=== PATIENT | male | born 1950 | race Caucasian/White ===

== ENCOUNTER 2017-05-26 13:54 | Outpatient (CLI) | payer OTHER ==
[2017-05-26] MEDS ORDERED: IOPAMIDOL-300 50 ML VIAL ONE (14:03)
[2017-05-26] MEDS ORDERED: IOPAMIDOL-300 100 ML VIAL ONE (14:03)
[2017-05-26] MEDS ORDERED: IOPAMIDOL-300 100 ML VIAL IVP ONE (14:13)
[2017-05-26] MEDS ORDERED: IOPAMIDOL-300 50 ML VIAL PO ONE (14:13)
--- NOTE | 2017-05-26 17:42 | CT Report ---
DATE OF SERVICE: 05/26/2017 EXAM: CT ABDOMEN AND PELVIS WITH CONTRAST 05/26/2017 CLINICAL INDICATION: Six months of unexplained weight loss. COMPARISON: 10/13/2011. TECHNIQUE: Axial CT images of the abdomen and pelvis were obtained with 100 mL Isovue 300 intravenou sly as well as oral contrast. FINDINGS ABDOMEN: The liver, spleen, pancreas and adrenal glands appear unremarkable. The kidneys demonstrat e multiple cortical cysts. No solid renal mass or hydronephrosis is appreciated. The gallbladder is not dilate d. No bowel dilatation, free gas, or free fluid is present. No abdominal adenopathy is appreciated. PELVIS: The pelvic organs appear unremarkable. No pelvic adenopathy or free fluid is appreciated. The osseous structures demonstrate degenerative changes and postoperative changes of right hip replac ement. IMPRESSION: NO EVIDENT ETIOLOGY FOR PATIENT'S WEIGHT LOSS. INCIDENTAL RENAL CYSTS. In accordance with CT protocol optimization, one or more of the following dose reduction techniques w ere utilized for this exam: automated exposure control, adjustment of mA and/or KV based on patient size, or use of iterative reconstructive technique. TD: 05/26/2017 17:17
--- NOTE | 2017-05-26 17:47 | CT Report ---
DATE OF SERVICE: 05/26/2017 EXAM: CT CHEST WITH CONTRAST CLINICAL INDICATION: Six months unexplained weight loss. TECHNIQUE: Axial CT images of the chest were obtained with 100 mL Isovue 300 intravenously. In accordance with CT protocol optimization, one or more of the following dose reduction techniques w ere utilized for this exam: automated exposure control, adjustment of mA and/or KV based on patient size, or use of iterative reconstructive technique. COMPARISON: No previous CT is available for comparison. FINDINGS: The heart and great vessels demonstrate mild atherosclerotic calcification. No hilar or m ediastinal lymphadenopathy is present. The lungs are clear. No suspicious pulmonary nodule or mass lesion is p resent. No effusion or pneumothorax is present. Osseous structures demonstrate degenerative changes. IMPRESSION: NO EVIDENCE OF PULMONARY NODULE OR MASS LESION. NO ADENOPATHY. TD: 05/26/2017 17:13
== END 2017-05-26 13:55 | disposition home or self-care (01) ==
LOC: DI 13:54
PROVIDERS: ATTEND Emergency Medicine Emergency Medical Services
DX: R63.4 Abnormal weight loss (principal)
CPT/HCPCS: 71260; 74177; Q9967

== ENCOUNTER 2017-06-29 01:27 | Outpatient (CLI) | payer OTHER | END 2017-06-29 01:28 | disposition EMS.NT | LOC: EMS 01:27 | PROVIDERS: ATTEND Surgery | DX: Z03.89 Encounter for observation for other suspected diseases and conditions ruled out (principal) ==

== ENCOUNTER 2018-03-12 15:26 | Outpatient (CLI) | payer OTHER ==
--- NOTE | 2018-03-13 16:17 | Ultrasound Report ---
Reason: CONCERN WITH INGUINAL,UMBILICAL HERNIA Procedure Date: 03/12/2018 Accession Number: [id number] / [id number] Procedure: US - Pelvic Limited or F/U CPT Code: FULL RESULT: EXAM: LIMITED ABDOMINAL WALL ULTRASOUND EXAM DATE: 03/12/2018 04:58 PM. CLINICAL HISTORY: Concern with inguinal umbilical hernia. COMPARISON: None. TECHNIQUE: Real-time scanning was performed of the supraumbilical region and left inguinal region with static images and dynamic cine images obtained. FINDINGS: Static and dynamic armas scale images of the left inguinal canal region as well as the periumbilical region were obtained. In the left inguinal region medial to the vessels as they cross over the inguinal ring is an echogenic mass suggestive of prior hernia repair. No abdominal content is seen protruding through this with Valsalva maneuver. Superior to the umbilicus is an abdominal wall defect which measures up to 0.8 cm and demonstrates echogenic material protruding which moves with Valsalva maneuver. IMPRESSION: Supraumbilical hernia, likely fat-containing. No herniation of bowel or mesenteric fat content is identified in the left inguinal region. RADIA
== END 2018-03-12 15:27 | disposition home or self-care (01) ==
LOC: DI 15:26
PROVIDERS: ATTEND Emergency Medicine Emergency Medical Services
DX: K43.9 Ventral hernia without obstruction or gangrene (principal)
CPT/HCPCS: 76857

== ENCOUNTER 2019-08-23 01:41 | Emergency (ER) | payer OTHER ==
[2019-08-23 01:50] VITALS: BP 129/80
--- NOTE | 2019-08-23 01:59 | ED Physician Documentation ---
History of Present Illness - Stated complaint Stated Complaint: NECK VEIN PX - Chief complaint Chief Complaint: General - History obtained from History obtained from: Patient ( the patient is a very pleasant 69 y/o male who presents with a cc of paresthesias and burning to his right forearm that has resolved and then his right neck. the patient is very concerned that he could have possibly having signs of a stroke, his symptoms started 2 days ago. he receives his medical care from the co at [facility], he has been unable to see a physician secondary to closure to covid 19. he denies any hx of mi, stroke or dvt/pe. he denies cp/sob/fevers/alejandra/neck pain/ sore throat/weakness/facial droop or any other concerns. reports that his symptoms have resolved completely, denies any trauma. reports he had shingles previously and this feels similar. denies any rashes, fevers or neck pain.) Review of Systems Constitutional: reports: Reviewed and negative Eyes: reports: Reviewed and negative Ears: reports: Reviewed and negative Nose: reports: Reviewed and negative Throat: reports: Reviewed and negative Cardiac: reports: Reviewed and negative Respiratory: reports: Reviewed and negative GI: reports: Reviewed and negative : reports: Reviewed and negative Skin: reports: Other (paresthesias) Musculoskeletal: reports: Reviewed and negative Neurologic: reports: Reviewed and negative Psychiatric: reports: Reviewed and negative Endocrine: reports: Reviewed and negative Immunocompromised: reports: Reviewed and negative PD PAST MEDICAL HISTORY - Past Medical History Cardiovascular: High cholesterol : Benign prostate hypertrophy, Retention Psych: ADD/ADHD, Post traumatic stress disorder - Past Surgical History Past Surgical History: Yes Ortho: Hip replacement - Present Medications Home Medications: Ambulatory Orders Medication Instructions Recorded Confirmed Bupropion HCl [Wellbutrin] 100 mg PO BID 09/26/14 01/13/16 Alfuzosin HCl [Alfuzosin HCl ER] 10 mg PO DAILY 01/21/15 01/13/16 Aspirin Chewable [St Isacc 81 mg PO DAILY 01/21/15 01/13/16 Aspirin] Atorvastatin [Lipitor] 20 mg PO DAILY 01/21/15 01/13/16 HYDROcod/ACETAM 5/325 [[place] 5/325] 1 - 2 ea PO Q6H PRN #10 tablet 01/13/16 lamoTRIgine [Lamictal] 200 mg PO DAILY 01/13/16 01/13/16 - Allergies Allergies/Adverse Reactions: Allergies Allergy/AdvReac Type Severity Reaction Status Date / Time risperidone [From Risperdal] Allergy Unknown Verified 08/23/19 01:50 contrast Dye Allergy Unknown Uncoded 08/23/19 01:50 - Social History Does the pt smoke?: No Smoking Status: Never smoker Does the pt drink ETOH?: No Does the pt have substance abuse?: No - Immunizations Immunizations are current?: Yes - POLST Patient has POLST: No PD ED PE NORMAL - Vitals Vital signs reviewed: Yes - General General: Alert and oriented X 3, No acute distress, Well developed/nourished, Other - HEENT HEENT: Atraumatic, PERRL, EOMI, Ears normal, Moist mucous membranes, Pharynx benign, Dentition benign, Other - Neck Neck: Supple, no meningeal sign, No bony TTP, No adenopathy, Thyroid normal, No JVD, No bruit, Other (The area of paresthesias to the right side the neck, there is it is nontender to palpation, there is no JVD there is no fluctuance, no induration no crepitus there is no carotid bruits there is no tracheal deviation normal voice tolerating secretions there is no cervical midline tenderness to palpation there is no step-offs or deformities of the cervical spine he has full range of motion on passive and active range of motion in flexion, extension, sidebending and rotation.) - Cardiac Cardiac: RRR, No murmur, Strong equal pulses - Respiratory Respiratory: No respiratory distress, Clear bilaterally - Abdomen Abdomen: Normal bowel sounds, Soft, Non tender, Non distended, No organomegaly - Back Back: No CVA TTP, No spinal TTP - Derm Derm: Normal color, Warm and dry, No rash - Extremities Extremities: No deformity, No tenderness to palpate, Normal ROM s pain, No edema, No calf tenderness / cord - Neuro Neuro: Alert and oriented X 3, recreation activities coordinator 2-12 intact, No motor deficit, No sensory deficit, Normal speech, Other (no facial droop, Cranial nerves II through XII grossly intact, no pronator drift no unilateral weakness, normal finger-nose, normal heel ahmadi, normal rapid alternating movements strength is 5 out of 5 bilateral upper and lower extremities, Sensations intact to light touch bilateral upper and lower extremity reflexes are 2+ and symmetric.Normal gait can walk on his heels and his toes normal standing balance test.) - Psych Psych: Normal mood, Normal affect Results - Vitals Vitals: Vital Signs - 24 hr 08/23/19 01:45 Temperature 36.5 C Heart Rate 72 Respiratory 14 Rate Blood Pressure 129/80 O2 Saturation 98 Oxygen O2 Source Room air PD MEDICAL DECISION MAKING - ED course Complexity details: considered differential (Patient presents with vague symptoms of paresthesias to the right forearm that is resolved and paresthesias to the right neck that is resolved. His NIH score is 0, he has no chest pain no history of [place] or stroke, he has no red flags to suggestAny deep neck space infection such as Lemierre's disease.No history of pulmonary embolism or DVT denies any lower extremity swelling no chest pain no shortness of breath no recent long travels no history of hypercoagulability no recent period of stasis or traumaAnd he denies any exogenous estrogen use.He does report he has a history of PTSD and bipolar disorderHe takes Lamictal as well as Wellbutrin.[facility] Departure - Departure Disposition: 01 Home, Self Care Clinical Impression: Well adult health check, Paresthesias Condition: Stable Instructions: ED Paraesthesias Follow-Up: your, doctor [Other] - 08/23/19 Comments: [facility]
== END 2019-08-23 02:19 | disposition home or self-care (01) ==
LOC: ED 01:41
DX: R20.2 Paresthesia of skin (principal)
CPT/HCPCS: 99281

== ENCOUNTER 2019-08-26 16:43 | Outpatient (CLI) | payer OTHER | END 2019-08-26 16:44 | disposition home or self-care (01) | LOC: COV 16:43 | PROVIDERS: ATTEND Family Medicine | DX: R05 Cough (principal); R50.9 Fever, unspecified | CPT/HCPCS: 81599 ==

== ENCOUNTER 2020-06-26 14:53 | Emergency (ER) | payer OTHER ==
--- NOTE | 2020-06-26 16:40 | ED Physician Documentation ---
PD HPI LOWER EXT INJURY - Stated complaint Stated Complaint: LEFT HIP PX - Chief complaint Chief Complaint: Ext Problem - History obtained from History obtained from: Patient - History of Present Illness PD HPI LOW EXT INJURY LOCATION: Left, Hip Type of injury: Other (He had radiation treatment localized for his prostate cancer. He had to hold still with his hip bent and his hip is hurting more after that. Has had hip pain for awhile, worse in AMs, but also with more activity (prolonged walking, etc).). No: Fall, Twist Timing - onset: Today Timing - details: Gradual onset Improved by: No: Rest Worsened by: Moving, Palpating (lateral hip) Associated symptoms: No: Weakness, Numbness, Swelling Similar symptoms before: No diagnosis (has had hip pains for awhile, with activity and feels stiff in mornings. Has had prior right hip replacement due to arthritis. This feels similar.) Review of Systems Constitutional: denies: Fever, Chills Nose: denies: Rhinorrhea / runny nose, Congestion Throat: denies: Sore throat Respiratory: denies: Cough Skin: denies: Rash, Lesions Neurologic: denies: Focal weakness, Numbness PD PAST MEDICAL HISTORY - Past Medical History Cardiovascular: High cholesterol : Benign prostate hypertrophy, Retention Psych: ADD/ADHD, Post traumatic stress disorder - Past Surgical History Past Surgical History: Yes Ortho: Hip replacement - Present Medications Home Medications: Ambulatory Orders Medication Instructions Recorded Confirmed Bupropion HCl [Wellbutrin] 100 mg PO BID 09/26/14 01/13/16 Alfuzosin HCl [Alfuzosin HCl ER] 10 mg PO DAILY 01/21/15 01/13/16 Aspirin Chewable [St Isacc 81 mg PO DAILY 01/21/15 01/13/16 Aspirin] Atorvastatin [Lipitor] 20 mg PO DAILY 01/21/15 01/13/16 HYDROcod/ACETAM 5/325 [[place] 5/325] 1 - 2 ea PO Q6H PRN #10 tablet 01/13/16 lamoTRIgine [Lamictal] 200 mg PO DAILY 01/13/16 01/13/16 HYDROcod/ACETAM 5/325 [[place] 5/325] 1 ea PO Q6H PRN #20 tablet 06/26/20 dexAMETHasone [Decadron] 4 mg PO DAILY #5 tablet 06/26/20 - Allergies Allergies/Adverse Reactions: Allergies Allergy/AdvReac Type Severity Reaction Status Date / Time risperidone [From Risperdal] Allergy Unknown Verified 06/26/20 15:09 contrast Dye Allergy Unknown Uncoded 06/26/20 15:09 - Social History Does the pt smoke?: No Smoking Status: Never smoker Does the pt drink ETOH?: No Does the pt have substance abuse?: No - Immunizations Immunizations are current?: Yes - POLST Patient has POLST: No PD ED PE NORMAL - Vitals Vital signs reviewed: Yes - General General: Alert and oriented X 3, Well developed/nourished, Other (appears uncomfortable and is trying to find comfortable position for his hip. Not comfortable sitting in exam chair, so converted it to lying and feels better. ) - Abdomen Abdomen: Soft, Non tender - Back Back: No spinal TTP - Derm Derm: Normal color, Warm and dry - Extremities Extremities: Other (He has minimal pain with passive range of motion of the left hip. He is tender along the lateral aspect at the greater trochanter and downward inferiorly some along the muscle. No redness, rash nor sores noted at the area. ) - Neuro Neuro: Alert and oriented X 3, No motor deficit, No sensory deficit, Normal speech Results - Vitals Vitals: Vital Signs - 24 hr 06/26/20 06/26/20 15:09 17:48 Temperature 36.6 C 36.6 C Heart Rate 91 84 Respiratory 18 20 Rate Blood Pressure 109/83 H 127/87 H O2 Saturation 97 99 Oxygen O2 Source Room air - Rads (name of study) left hip Radiology: Prelim report reviewed (arthritic changes, no fractures nor lytic lesions. ), See rad report Procedures - General procedure General procedure: I did trochanteric bursal injection with Kenalog and bupivacaine at the area of point tenderness. No complications with this. The skin was cleansed prior to injection. PD MEDICAL DECISION MAKING - ED course Complexity details: reviewed results, considered differential (locally tender at greater trochanter and pain mainly lateral and with leg movement. Bursitis/tendonitis mostly, though might have some hip arthritis as well. ), d/w patient Departure - Departure Disposition: 01 Home, Self Care Clinical Impression: Trochanteric bursitis Qualifiers: Laterality: left Qualified Code(s): M70.62 - Trochanteric bursitis, left hip Condition: Stable Record reviewed to determine appropriate education?: Yes Instructions: ED Bursitis Follow-Up: CHRIS CHONG ARNP [Primary Care Provider] - Prescriptions: dexAMETHasone [Decadron] 4 mg PO DAILY #5 tablet HYDROcod/ACETAM 5/325 [[place] 5/325] 1 ea PO Q6H PRN #20 tablet PRN Reason: Pain Comments: Your x-ray shows some arthritis along the outer part of the hip and the bursa area where you are tender. I would treat this with anti-inflammatory of Decadron orally daily for the next 5 days. To that add Tylenol or hydrocodone as needed for pain. Gentle range of motion and activity for the area and some stretching of the hip muscles. Follow-up with your primary care if not improved well over the next several days and resolved by a week. Discharge Date/Time: 06/26/20 18:03
--- NOTE | 2020-06-26 17:00 | XRAY Report ---
PROCEDURE: Hip w/Pelvis 2-3V LT INDICATIONS: L hip pain prostate cancer TECHNIQUE: AP pelvis with lateral view(s) of the left hip(s). COMPARISON: None. FINDINGS: Bones: Patient is status post prior right total hip arthroplasty with anatomic right hip alignment. N o fractures or dislocations. Left hip joint osteoarthritic changes are seen. No evidence of avascula r necrosis of femoral head. Pelvic ring appears intact. No suspicious bony lesions. Soft tissues: The visualized bowel gas pattern is normal. No suspicious soft tissue calcifications. IMPRESSION: 1. No gross acute left hip fracture or dislocation. Moderate left hip joint osteoarthritis. No eviden ce of avascular necrosis. 2. Prior right total hip arthroplasty. Reviewed by: Mervin Carmichael MD on 06/26/2020 4:59 PM PST Approved by: Mervin Carmichael MD on 06/26/2020 4:59 PM PST Station ID: [id number]
[2020-06-26] MEDS ORDERED: TRIAMCINOLONE 40 MG/ML VIAL IM STA (17:05)
[2020-06-26] MEDS ORDERED: ACETAMINOPHEN 325 MG TABLET PO STA (17:06)
[2020-06-26 17:49] VITALS: BP 127/87
== END 2020-06-26 18:03 | disposition home or self-care (01) ==
LOC: ED 14:53
DX: M70.62 Trochanteric bursitis, left hip (principal); X50.1XXA Overexertion from prolonged static or awkward postures, initial encounter; D40.0 Neoplasm of uncertain behavior of prostate
CPT/HCPCS: 20552; 73502; 99283; A9270

== ENCOUNTER 2020-07-28 13:06 | Emergency (ER) | payer OTHER ==
[2020-07-28 13:17] VITALS: BP 122/81
--- NOTE | 2020-07-28 13:38 | ED Physician Documentation ---
PD HPI LOWER EXT INJURY - Stated complaint Stated Complaint: L HIP PX - Chief complaint Chief Complaint: Ext Problem - History obtained from History obtained from: Patient - History of Present Illness PD HPI LOW EXT INJURY LOCATION: Left, Hip Type of injury: Other (has had ongoing pain of left hip with arthritis. Seen by PMD at [facility] and is getting referral for MRI but will be few weeks. Having worse pain with walking. Here for eval and asks about MRI.). No: Fall, Twist Timing - onset: How many months ago Timing - details: Gradual onset, Still present (worse the past several days), Waxing and waning Worsened by: Moving, Other (weight bearing) Associated symptoms: No: Weakness, Numbness, Swelling Similar symptoms before: Diagnosis (arthritis of hip. Has had right hip replacement in the past. Getting eval for MRI and ortho referral for left hip.) Recently seen: Clinic, Emergency Dept (last ER, had element of lateral bursitis as well, with injection laterally. Rx for pain meds.) Review of Systems Constitutional: denies: Fever, Chills Nose: denies: Rhinorrhea / runny nose, Congestion Throat: denies: Sore throat Respiratory: denies: Cough Skin: denies: Rash, Lesions Neurologic: denies: Focal weakness, Numbness PD PAST MEDICAL HISTORY - Past Medical History Cardiovascular: High cholesterol : Benign prostate hypertrophy, Retention Psych: ADD/ADHD, Post traumatic stress disorder - Past Surgical History Past Surgical History: Yes Ortho: Hip replacement - Present Medications Home Medications: Ambulatory Orders Medication Instructions Recorded Confirmed Bupropion HCl [Wellbutrin] 100 mg PO BID 09/26/14 01/13/16 Alfuzosin HCl [Alfuzosin HCl ER] 10 mg PO DAILY 01/21/15 01/13/16 Aspirin Chewable [St Isacc 81 mg PO DAILY 01/21/15 01/13/16 Aspirin] Atorvastatin [Lipitor] 20 mg PO DAILY 01/21/15 01/13/16 HYDROcod/ACETAM 5/325 [[place] 5/325] 1 - 2 ea PO Q6H PRN #10 tablet 01/13/16 lamoTRIgine [Lamictal] 200 mg PO DAILY 01/13/16 01/13/16 HYDROcod/ACETAM 5/325 [[place] 5/325] 1 ea PO Q6H PRN #20 tablet 06/26/20 dexAMETHasone [Decadron] 4 mg PO DAILY #5 tablet 06/26/20 Meloxicam [Mobic] 7.5 mg PO BID PRN #30 tab 07/28/20 oxyCODONE [Roxicodone] 5 mg PO Q8H PRN #20 tab 07/28/20 - Allergies Allergies/Adverse Reactions: Allergies Allergy/AdvReac Type Severity Reaction Status Date / Time risperidone [From Risperdal] Allergy Unknown Verified 07/28/20 13:13 contrast Dye Allergy Unknown Uncoded 06/26/20 15:09 - Social History Does the pt smoke?: No Smoking Status: Never smoker Does the pt drink ETOH?: No Does the pt have substance abuse?: No - Immunizations Immunizations are current?: Yes - POLST Patient has POLST: No PD ED PE NORMAL - Vitals Vital signs reviewed: Yes - General General: Alert and oriented X 3, Well developed/nourished - Abdomen Abdomen: Soft, Non tender - Back Back: No spinal TTP - Derm Derm: Normal color, Warm and dry - Extremities Extremities: Other (left hip without tenderness at lateral bursa. Has guarded ROM of the hip. No noted effusion/redness/ warmth to the joint. ) - Neuro Neuro: No motor deficit, No sensory deficit Results - Vitals Vitals: Vital Signs - 24 hr 07/28/20 13:13 Temperature 36.6 C Heart Rate 89 Respiratory 18 Rate Blood Pressure 122/81 H O2 Saturation 99 Oxygen O2 Source Room air PD MEDICAL DECISION MAKING - ED course Complexity details: considered differential (arthritis of the hip. ongoing pain. Can give meds for it short term with f/u PMD. Also to see Ortho. ), d/w patient Departure - Departure Disposition: Home, Self Care Clinical Impression: Hip pain, Hip arthritis Condition: Stable Record reviewed to determine appropriate education?: Yes Instructions: ED Degenerative Joint Disease Follow-Up: [facility] [Provider Group] Terence Herring MD [Provider Admit Priv/Credential] - Prescriptions: Meloxicam [Mobic] 7.5 mg PO BID PRN #30 tab PRN Reason: Pain oxyCODONE [Roxicodone] 5 mg PO Q8H PRN #20 tab PRN Reason: Pain Comments: I would suggest some regular anti-inflammatories taken with food. We could try a different 1 and see if it works a little bit better, Mobic 7.5 mg twice daily. To that add Tylenol 500 mg 4 times a day regularly for pain. To that add oxycodone 3 times a day if needed for worse pain. Call your primary care at the [facility] and see if they can get you a referral for orthopedics parallel with getting set up for the MRI. Alternatively you may be able to follow-up with orthopedics locally for the short-term anyway to see if there is other therapeutic treatments such as joint injection or such. I would defer that to the judgment of the specialist. Use the crutches as needed for partial weightbearing off of the hip to reduce pain. Discharge Date/Time: 07/28/20 14:23
[2020-07-28] MEDS ORDERED: oxyCODONE 5 MG TABLET PO STA (14:06)
[2020-07-28] MEDS ORDERED: NAPROXEN 250 MG TABLET PO STA (14:06)
== END 2020-07-28 14:23 | disposition home or self-care (01) ==
LOC: ED 13:06
DX: M25.552 Pain in left hip (principal); M16.10 Unilateral primary osteoarthritis, unspecified hip
CPT/HCPCS: 99283; A9270

== ENCOUNTER 2020-08-05 13:54 | Emergency (ER) | payer OTHER ==
[2020-08-05 14:03] VITALS: BP 128/78
[2020-08-05] MEDS ORDERED: HYDROmorphone 1 MG/ML CARPUJECT IM STA (14:24)
--- NOTE | 2020-08-05 14:24 | ED Physician Documentation ---
History of Present Illness - Stated complaint Stated Complaint: RT HIP PX - Chief complaint Chief Complaint: Ext Problem - Additonal information Additional information: 70-year-old male comes to the emergency department for evaluation of chronic right hip pain that is gotten progressively worse over the last 6 months to a year. He did have a hip prosthesis placed in 1999. He denies any falls or trauma but states that bearing weight on the hip is getting increasingly hard. He was seen just a few weeks ago for left hip pain found to have osteoarthritis of that hip. He is [facility]. He is taking meloxicam and oxycodone with minimal relief of pain. Review of Systems Constitutional: reports: Reviewed and negative Eyes: reports: Reviewed and negative Ears: reports: Reviewed and negative Cardiac: reports: Reviewed and negative Respiratory: reports: Reviewed and negative GI: reports: Reviewed and negative : reports: Reviewed and negative Skin: reports: Reviewed and negative Musculoskeletal: reports: Joint pain (right hip) Neurologic: reports: Reviewed and negative Endocrine: reports: Reviewed and negative PD PAST MEDICAL HISTORY - Past Medical History Cardiovascular: High cholesterol : Benign prostate hypertrophy, Retention Psych: ADD/ADHD, Post traumatic stress disorder - Past Surgical History Past Surgical History: Yes Ortho: Hip replacement - Present Medications Home Medications: Ambulatory Orders Medication Instructions Recorded Confirmed Bupropion HCl [Wellbutrin] 100 mg PO BID 09/26/14 01/13/16 Alfuzosin HCl [Alfuzosin HCl ER] 10 mg PO DAILY 01/21/15 01/13/16 Aspirin Chewable [St Isacc 81 mg PO DAILY 01/21/15 01/13/16 Aspirin] Atorvastatin [Lipitor] 20 mg PO DAILY 01/21/15 01/13/16 HYDROcod/ACETAM 5/325 [[place] 5/325] 1 - 2 ea PO Q6H PRN #10 tablet 01/13/16 lamoTRIgine [Lamictal] 200 mg PO DAILY 01/13/16 01/13/16 HYDROcod/ACETAM 5/325 [[place] 5/325] 1 ea PO Q6H PRN #20 tablet 06/26/20 dexAMETHasone [Decadron] 4 mg PO DAILY #5 tablet 06/26/20 Meloxicam [Mobic] 7.5 mg PO BID PRN #30 tab 07/28/20 oxyCODONE [Roxicodone] 5 mg PO Q8H PRN #20 tab 07/28/20 - Allergies Allergies/Adverse Reactions: Allergies Allergy/AdvReac Type Severity Reaction Status Date / Time risperidone [From Risperdal] Allergy Unknown Verified 08/05/20 14:00 contrast Dye Allergy Unknown Uncoded 06/26/20 15:09 - Social History Does the pt smoke?: No Smoking Status: Never smoker Does the pt drink ETOH?: No Does the pt have substance abuse?: No - Immunizations Immunizations are current?: Yes - POLST Patient has POLST: No PD ED PE EXPANDED - General General: Alert, No acute distress - Cardiac Cardiac: Regular Rate, Regular Rhythm, Radial strong equal, Pedal strong equal, Cap refill < 2 sec - Respiratory Respiratory: Clear to ausultation amrita. No: Distress, Labored - Extremities Extremities: Right hip (tenderness lateral femoral head. no clicks. Reduced ROm external rotation. no swellign erythema. Bears full weight) Results - Vitals Vitals: Vital Signs - 24 hr 08/05/20 14:00 Temperature 36.6 C Heart Rate 70 Respiratory 18 Rate Blood Pressure 128/78 O2 Saturation 99 Oxygen O2 Source Room air - Rads (name of study) Right hip Radiology: Final report received (Status post right total hip arthroplasty without evidence for hardware complication. Right hip and pelvis without acute fracture or dislocation. Interval progression of moderate severe left hip degenerative change. Lower lumbar spondylosis.) PD MEDICAL DECISION MAKING - ED course Complexity details: reviewed results, re-evaluated patient, considered differential, d/w patient ED course: 70-year-old male presents emergency department with acute on chronic right hip pain. 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 Seen recently for left hip pain and imaging shows pretty severe osteoarthritis. I suspected that the increasing right hip pain may be a compensation for the left hip. Patient would like an MRI however I discussed that is not indicated not emergently here in the emergency department. My suspicion for occult fracture is extremely low in this gentleman is able to walk and bear weight fully. Patient advised to follow-up with his PCP to obtain the outpatient MRI. I will also give him the number of our local orthopedics if he is able to follow-up with them through [facility]. I declined opiate prescription today. I did offer repeat prescription the meloxicam which he declined. Emergent return precautions discussed Departure - Departure Disposition: 01 Home, Self Care Clinical Impression: Chronic right hip pain Condition: Stable Record reviewed to determine appropriate education?: Yes Instructions: Hip Osteoarthritis Follow-Up: [facility] [Provider Group] Comments: Sergio the x-ray of your hip does not show any concerns with the hardware. I suspect that the worsening right hip pain is likely compensation for the increasing arthritis in your left hip. It may be beneficial for you to use your crutches at home to help offload the left hip. Please continue to take the meloxicam at home for pain. Please call Dr. Roberts to discuss this ED visit. Your primary care provider can write the referral for the hip MRI and you can then get it scheduled through [facility] if you would like. I have also provided you the number of our orthopedics department. You may call them to see if you can be seen in follow- up though that may be dictated by the [place] insurance
--- NOTE | 2020-08-05 15:02 | XRAY Report ---
PROCEDURE: Hip w/Pelvis 2-3V RT INDICATIONS: his pain; hx of prosthesis TECHNIQUE: AP pelvis with lateral view(s) of the right hip(s). COMPARISON: 07/21/2015 FINDINGS: Bones: No acute fractures or dislocations. Status post right total hip arthroplasty in stable alignm ent. No evidence of hardware failure or loosening. Progression of moderate-severe left hip osteoarthr osis. Lower lumbar spondylosis. Pelvic ring appears intact. No suspicious bony lesions. Soft tissues: The visualized bowel gas pattern is normal. No suspicious soft tissue calcifications. IMPRESSION: 1. Status post right total hip arthroplasty without evidence for hardware complication. 2. Right hip and pelvis without acute fracture or dislocation. 3. Interval progression of moderate-severe left hip degenerative change. 4. Lower lumbar spondylosis. Reviewed by: Dameon Walsh MD on 08/05/2020 3:01 PM PST Approved by: Dameon Walsh MD on 08/05/2020 3:01 PM PST Station ID: [id number]
== END 2020-08-05 16:04 | disposition home or self-care (01) ==
LOC: ED 13:54
DX: M25.551 Pain in right hip (principal); G89.29 Other chronic pain; M16.12 Unilateral primary osteoarthritis, left hip
CPT/HCPCS: 99283

== ENCOUNTER 2020-12-17 20:34 | Outpatient (CLI) | payer MEDICARE, OTHER | END 2020-12-17 20:35 | disposition EMS.NT | LOC: EMS 20:34 | DX: Z04.1 Encounter for examination and observation following transport accident (principal) ==

== ENCOUNTER 2020-12-17 21:26 | Emergency (ER) | payer OTHER, MEDICARE ==
[2020-12-17 21:45] VITALS: BP 150/96
== END 2020-12-17 22:20 | disposition left against medical advice (07) ==
LOC: ED 21:26
DX: Z53.21 Procedure and treatment not carried out due to patient leaving prior to being seen by health care provider (principal)

== ENCOUNTER 2020-12-18 21:11 | Emergency (ER) | payer OTHER, MEDICARE ==
[2020-12-19] MEDS ORDERED: HYDROcod/ACET 5/325 Prepack 4 PO STA (00:21)
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
[2020-12-19 00:34] VITALS: BP 115/75
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
== END 2020-12-19 00:35 | disposition home or self-care (01) ==
LOC: ED 21:11
DX: S70.02XA Contusion of left hip, initial encounter (principal); S89.91XA Unspecified injury of right lower leg, initial encounter; V53.5XXA Driver of pick-up truck or van injured in collision with car, pick-up truck or van in traffic accident, initial encounter; Y92.414 Local residential or business street as the place of occurrence of the external cause
CPT/HCPCS: 99283; 99284

== ENCOUNTER 2021-05-17 23:35 | Emergency (ER) | payer MEDICARE, OTHER ==
[2021-05-17 23:44] VITALS: BP 115/74
--- NOTE | 2021-05-17 23:47 | ED Physician Documentation ---
History of Present Illness - Stated complaint Stated Complaint: R SHOULDER PX - Chief complaint Chief Complaint: Ext Problem PD PAST MEDICAL HISTORY - Past Medical History Cardiovascular: High cholesterol Respiratory: None Neuro: None Endocrine/Autoimmune: None GI: None : Benign prostate hypertrophy, Retention HEENT: None Psych: ADD/ADHD, Post traumatic stress disorder Musculoskeletal: None Derm: None - Past Surgical History Past Surgical History: Yes Ortho: Hip replacement - Present Medications Home Medications: Ambulatory Orders Medication Instructions Recorded Confirmed Bupropion HCl [Wellbutrin] 100 mg PO BID 09/26/14 12/18/20 Aspirin Chewable [St Isacc 81 mg PO DAILY 01/21/15 12/18/20 Aspirin] Atorvastatin [Lipitor] 20 mg PO DAILY 01/21/15 12/18/20 lamoTRIgine [Lamictal] 200 mg PO DAILY 01/13/16 12/18/20 HYDROcod/ACETAM 5/325 [[place] 5/325] 1 - 2 tablet PO Q6H PRN #14 tablet 12/19/20 - Allergies Allergies/Adverse Reactions: Allergies Allergy/AdvReac Type Severity Reaction Status Date / Time risperidone [From Risperdal] Allergy Unknown Verified 05/17/21 23:44 contrast Dye Allergy Unknown Uncoded 05/17/21 23:44 - Social History Does the pt smoke?: No Smoking Status: Never smoker Does the pt drink ETOH?: No Does the pt have substance abuse?: No - Immunizations Immunizations are current?: Yes - POLST Patient has POLST: No Results - Vitals Vitals: Vital Signs - 24 hr 05/17/21 23:40 Temperature 36.5 C Heart Rate 74 Respiratory 18 Rate Blood Pressure 115/74 O2 Saturation 98 Oxygen O2 Source Room air
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
--- NOTE | 2021-05-18 00:19 | XRAY Report ---
PROCEDURE: Shoulder 3 View RT INDICATIONS: fall, right shoulder pain with limited ROM TECHNIQUE: 3 views of the shoulder were acquired. COMPARISON: None. FINDINGS: Bones: No fractures or dislocations. 2.9 cm lucent focus noted in the humeral head may represent a b one cyst or neoplastic process. Visualized ribs appear intact. Mild acromioclavicular joint and gleno humeral joint osteoarthritis. Soft tissues: Calcification noted adjacent to the lateral margin of the humeral head compatible with rotator cuff calcific tendinitis.. IMPRESSION: 1. Acromioclavicular joint and glenohumeral joint osteoarthritis. 2. Rotator cuff calcific tendinitis. 3. 2.9 cm lucency in the humeral head. Recommend MRI of the shoulder to differentiate bone cyst from neoplastic process. Reviewed by: Meghan Hill MD, PhD on 05/18/2021 12:18 AM PST Approved by: Meghan Hill MD, PhD on 05/18/2021 12:18 AM PST Station ID: [id number]
[2021-05-18] MEDS ORDERED: oxyCODONE/ACET 5/325 Prepack 4 PO STA (00:39)
== END 2021-05-18 00:59 | disposition home or self-care (01) ==
LOC: ED 23:35
DX: S43.401A Unspecified sprain of right shoulder joint, initial encounter (principal); V58.4XXA Person boarding or alighting a pick-up truck or van injured in noncollision transport accident, initial encounter; Y92.007 Garden or yard of unspecified non-institutional (private) residence as the place of occurrence of the external cause; M75.31 Calcific tendinitis of right shoulder; M19.011 Primary osteoarthritis, right shoulder; R93.6 Abnormal findings on diagnostic imaging of limbs; Z79.82 Long term (current) use of aspirin
CPT/HCPCS: 99282; 99283

== ENCOUNTER 2021-06-18 15:58 | Emergency (ER) | payer OTHER ==
[2021-06-18 16:06] VITALS: BP 106/72
--- NOTE | 2021-06-18 16:49 | ED Physician Documentation ---
PD HPI UPPER EXT INJURY - Stated complaint Stated Complaint: R SHOULDER INJ - Chief complaint Chief Complaint: Trauma Ext - History obtained from History obtained from: Patient - History of Present Illness Location: Right, Shoulder Type of injury: Blunt / blow (he states a heavy door blew open and struck into lateral right shoulder, with pain in deltoid and AC area. Pain with ROM.) Where injury occurred: Other (store) Timing - onset: How many hours ago (2), Today Timing - duration: Hours (2) Timing - details: Abrupt onset, Still present Worsened by: Moving, Palpating (lateral shoulder and AC area.) Associated symptoms: No: Weakness, Numbness Contributing factors: Other (He had had problems with right shoulder pain apparently tendinitis type symptoms that had actually been improving quite a bit . Pain now worse again with this current injury.). No: Prior ortho surgery Recently seen: Not recently seen Review of Systems Musculoskeletal: denies: Neck pain, Back pain Neurologic: denies: Focal weakness, Numbness PD PAST MEDICAL HISTORY - Past Medical History Cardiovascular: High cholesterol Respiratory: None Neuro: None Endocrine/Autoimmune: None GI: None : Benign prostate hypertrophy, Retention HEENT: None Psych: ADD/ADHD, Post traumatic stress disorder Musculoskeletal: None Derm: None - Past Surgical History Past Surgical History: Yes Ortho: Hip replacement - Present Medications Home Medications: Ambulatory Orders Medication Instructions Recorded Confirmed Bupropion HCl [Wellbutrin] 100 mg PO BID 09/26/14 12/18/20 Aspirin Chewable [St Isacc 81 mg PO DAILY 01/21/15 12/18/20 Aspirin] Atorvastatin [Lipitor] 20 mg PO DAILY 01/21/15 12/18/20 lamoTRIgine [Lamictal] 200 mg PO DAILY 01/13/16 12/18/20 HYDROcod/ACETAM 5/325 [[place] 5/325] 1 - 2 tablet PO Q6H PRN #14 tablet 12/19/20 Naproxen 500 mg PO BID 10 Days #20 tab.sr 06/18/21 oxyCODONE [Roxicodone] 5 mg PO Q6H PRN #15 tablet 06/18/21 - Allergies Allergies/Adverse Reactions: Allergies Allergy/AdvReac Type Severity Reaction Status Date / Time risperidone [From Risperdal] Allergy Unknown Verified 06/18/21 16:06 contrast Dye Allergy Unknown Uncoded 06/18/21 16:06 - Social History Does the pt smoke?: No Smoking Status: Never smoker Does the pt drink ETOH?: No Does the pt have substance abuse?: No - Immunizations Immunizations are current?: Yes - POLST Patient has POLST: No PD ED PE NORMAL - Vitals Vital signs reviewed: Yes - General General: Alert and oriented X 3, Well developed/nourished - Neck Neck: Supple, no meningeal sign, No bony TTP, No adenopathy - Derm Derm: Normal color, Warm and dry - Extremities Extremities: Other (The right shoulder is tender along the lateral aspect and the muscle and also at the AC joint. He is able to do rotator cuff motions against resistance with strength but it does hurt for abduction and external rotation. No gross deformity.) - Neuro Neuro: Alert and oriented X 3, No motor deficit, No sensory deficit, Normal speech Results - Vitals Vitals: Vital Signs - 24 hr 06/18/21 16:02 Temperature 36.5 C Heart Rate 82 Respiratory 16 Rate Blood Pressure 106/72 O2 Saturation 98 Oxygen O2 Source Room air - Rads (name of study) right shoulder Radiology: Prelim report reviewed (no fractures nor dislocations.), See rad report PD MEDICAL DECISION MAKING - ED course Complexity details: reviewed results, considered differential, d/w patient Departure - Departure Disposition: 01 Home, Self Care Clinical Impression: Shoulder contusion Qualifiers: Encounter type: initial encounter Laterality: right Qualified Code(s): S40.011A - Contusion of right shoulder, initial encounter Condition: Stable Record reviewed to determine appropriate education?: Yes Instructions: ED Contusion Shoulder Follow-Up: CHRIS CHONG ARNP [Primary Care Provider] - Prescriptions: Naproxen 500 mg PO BID 10 Days #20 tab.sr oxyCODONE [Roxicodone] 5 mg PO Q6H PRN #15 tablet PRN Reason: Pain Comments: Your x-ray appears good without any signs of fracture no dislocation. On exam it would suggest that you have may be some injury of the AC joint but it does not feel torn. There could be some bruising of the muscles in the shoulder as well but does not feel like a rotator cuff tear. At this point I think just being nice to your shoulder with a sling use periodically if needed but otherwise no heavy lifting, push pull, overhead reaching for the next several days to week. Gentle range of motion to the area so it does not get stiff. Anti-inflammatory such as naproxen twice daily with food for the next 7 to 10 days. To that add Tylenol or oxycodone as needed for pains. Recheck if not improved well over the next several days to a week. I transmitted your prescriptions to [facility]. I am prescribing a short course of narcotic pain medication for you. These are potentially dangerous and addictive medications that should be used carefully. These medications may constipate you. Take an [id number] stool softener such as docusate twice daily with plenty of water while taking these medications. If you go 24 hours without a bowel movement, take [id number] MiraLAX, per package instructions. Do not drink or drive while taking these medications. If you received narcotic or sedating medications while in the emergency department do not drive for 24 hours. Store this medication in a safe, secure place and out of reach of children. It is a violation of federal law to give or sell this medication to another person or to use in a manner other than prescribed. The ED will not refill narcotic prescriptions, including prescriptions lost or stolen. You can dispose of unwanted medications at the [facility] office or at several pharmacies such as [facility]. Discharge Date/Time: 06/18/21 18:06
--- NOTE | 2021-06-18 17:22 | XRAY Report ---
PROCEDURE: Shoulder 3 View RT INDICATIONS: shoulder inj TECHNIQUE: 3 views of the shoulder were acquired. COMPARISON: X-ray shoulder 05/17/2021 FINDINGS: Bones: No fractures or dislocations. As identified on prior exam, there is an ill-defined lucency wi thin the humeral head measuring approximately 3 cm. Visualized ribs appear intact. Moderate acromioclavicular degenerative narrowing. Soft tissues: Rotator cuff tendinitis is present. IMPRESSION: No visualized acute fracture or dislocation. However, occult injury cannot be excluded. Recommend sh ort interval imaging follow-up in 7-10 days as clinically indicated for additional evaluation. Unchanged appearance of humeral head lucency. As previously identified, etiology is indeterminate on the basis of this exam such as bone cyst versus malignant process. MRI is recommended for further cruzito luation. Reviewed by: Caryn Quiñonez MD on 06/18/2021 5:21 PM PST Approved by: Caryn Quiñonez MD on 06/18/2021 5:21 PM PST Station ID: [id number]
[2021-06-18] MEDS ORDERED: ACETAMINOPHEN 325 MG TABLET PO STA (17:37)
[2021-06-18] MEDS ORDERED: NAPROXEN 250 MG TABLET PO STA (17:37)
== END 2021-06-18 18:06 | disposition home or self-care (01) ==
LOC: ED 15:58
DX: S40.011A Contusion of right shoulder, initial encounter (principal); W20.8XXA Other cause of strike by thrown, projected or falling object, initial encounter; Y92.512 Supermarket, store or market as the place of occurrence of the external cause
CPT/HCPCS: 73030; 99282; 99283; A9270